=== PATIENT | female | born 1970 | race African-American/Black ===

== ENCOUNTER 2016-04-14 11:15 | Emergency (ER) | payer SELFPAY ==
[~2016-04-14] VITALS: Ht 157.5 cm; Wt 81.6 kg
[~2016-04-14 11:15] MED LIST: AZITHROMYCIN250 MG ORAL; BLEPH-105 ML OP; NAPROSYN375 M1 ORAL; ZITHROMAX250 MG ORAL
[2016-04-14 11:33] VITALS: BP 126/86
[2016-04-14] MEDS ORDERED: ALBUTEROL SULF8.5 GM INH (11:45)
[2016-04-14] MEDS ORDERED: PROMETH-CODEIN 65 ML PO (11:45)
[2016-04-14 11:50] VITALS: BP 126/86
--- NOTE | 2016-04-14 13:26 | Emergency Room Report ---
History of Present Illness General Chief Complaint: Upper Respiratory Illness Source: Patient Present Illness HPI Patient presents with complaints of cough and congestion Ongoing for the past several days Denies any fevers or chills Denies any chest pain Denies any neck pain or photophobia Denies any vomiting or diarrhea Denies any recent travel Allergies: Coded Allergies: No Known Allergies (Unverified , 06/03/14) Patient History Past Medical History: see triage record Pertinent Family History: none Last Menstrual Period: 2\1\17 Now: No : 3 Para: 3 Reviewed Nursing Documentation: PMH: Agreed, PSxH: Agreed Nursing Documentation-PMH Past Medical History: No Stated History Review of Systems All Other Systems: negative except mentioned in HPI Physical Exam Vital Signs Date Time Temp Pulse Resp B/P Pulse Ox O2 Delivery O2 Flow Rate FiO2 04/14/16 11:28 97.7 78 20 126/86 99 Room Air Sp02 EP Interpretation: reviewed, normal General Appearance: well appearing, no apparent distress Head: normocephalic, atraumatic Eyes: bilateral eye EOMI, bilateral eye PERRL ENT: hearing grossly normal, normal pharynx, TMs + canals normal, uvula midline Neck: full range of motion, supple, no meningismus, no bony tend Respiratory: lungs clear, normal breath sounds, no rhonchi, no respiratory distress, no retraction, no accessory muscle use Cardiovascular #1: normal peripheral pulses, regular rate, rhythm, no edema, no gallop, no JVD, no murmur Gastrointestinal: normal bowel sounds, non tender, soft, no mass, no organomegaly, non-distended, no guarding, no hernia, no pulsatile mass, no rebound Genitourinary: no CVA tenderness Musculoskeletal: normal inspection Neurologic: oriented x3, responsive, bark scaler III-XII nml as tested, motor strength/ tone normal, sensory intact Psychiatric: mood/affect normal Skin: normal color, no rash, warm/dry, palpation normal Lymphatic: normal inspection, no adenopathy Medical Decision Making Diagnostic Impression: Primary Impression: Upper respiratory infection Additional Impression: bronchitis ER Course Patient does have findings in line with a simple URI At this time patient will have initial conservative outpatient trial Differentials such as pneumonia were also considered Last Vital Signs Date Time Temp Pulse Resp B/P Pulse Ox O2 Delivery O2 Flow Rate FiO2 04/14/16 11:50 97.7 20 126/86 99 Room Air 04/14/16 11:33 78 Status: improved Disposition: HOME, SELF-CARE Condition: Stable Scripts Promethazine HCl/Codeine (Prometh-Codein 6.25-10 mg/5 ml) 5 Ml Syrup 5 ML PO QHS for 5 Days, ML Prov: MANJU LEACH D.O. 04/14/16 Albuterol Sulfate* (ALBUTEROL SULFATE MDI*) 8.5 Gm Hfa.aer.ad 2 PUFF INH Q6H, #1 EA 0 Refills Prov: MANJU LEACH D.O. 04/14/16 Referrals: NOT CHOSEN IPA/,REFERRING (PCP) Patient Instructions: Upper Respiratory Infection, Adult Additional Instructions: Patient is provided with the discharge instructions notified to follow up with primary doctor in the next 2-3 days otherwise return to the er with any worsening symptoms. Please note that this report is being documented using DRAGON technology. This can lead to erroneous entry secondary to incorrect interpretation by the dictating instrument. MANJU LEACH D.O. Apr 14, 2016 13:26
== END 2016-04-14 12:02 | disposition home or self-care (01) ==
LOC: EMR 11:44
DX: J20.9 Acute bronchitis, unspecified (principal)
CPT/HCPCS: 99284

== ENCOUNTER 2017-01-25 13:01 | Emergency (ER) | payer SELFPAY ==
[~2017-01-25] VITALS: Ht 157.5 cm; Wt 74.8 kg
[~2017-01-25 13:01] MED LIST changes: +ALBUTEROL SULF8.5 GM INH; +PROMETH-CODEIN 65 ML PO
[2017-01-25 13:25] VITALS: BP 123/79
[2017-01-25] MEDS ORDERED: LORATADINE10 M2 PO (14:03)
[2017-01-25] MEDS ORDERED: FLONASE ALLERG9.9 ML NS (14:03)
[2017-01-25] MEDS ORDERED: BROMFED DM COU118 ML PO (14:03)
[2017-01-25] MEDS ORDERED: ALBUTEROL SULF8.5 GM INH (14:03)
--- NOTE | 2017-01-25 14:03 | Emergency Room Report ---
History of Present Illness General Chief Complaint: Upper Respiratory Illness Source: Patient Present Illness HPI 46 y/o female c/o URI sxs x 5 days. Assoc sxs include nasal congestion, rhinorrhea, sore throat, post nasal drip, bodyaches, chills, and cough due to tickle in the throat. States they has not taken medication for symptoms. Denies any current n/v/f/c/d, abd pain, back pain, neck pain, photophobia, phonophobia , CP, SOB or headache. Allergies: Coded Allergies: No Known Allergies (Unverified , 06/03/14) Patient History Past Medical History: see triage record Past Surgical History: none Pertinent Family History: none Social History: Reports: smoking Now: No Reviewed Nursing Documentation: PMH: Agreed, PSxH: Agreed Nursing Documentation-PMH Past Medical History: No Stated History Review of Systems All Other Systems: negative except mentioned in HPI Physical Exam Vital Signs Date Time Temp Pulse Resp B/P (MAP) Pulse Ox O2 Delivery O2 Flow Rate FiO2 01/25/17 13:15 98.1 90 18 123/79 96 Room Air Sp02 EP Interpretation: reviewed, normal General Appearance: no apparent distress, alert, GCS 15, non-toxic Head: normocephalic, atraumatic Eyes: bilateral eye normal inspection, bilateral eye PERRL ENT: hearing grossly normal, normal pharynx, no angioedema, normal voice, TMs + canals normal, uvula midline, nasal congestion, other - post nasal drip Neck: full range of motion, supple/symm/no masses Respiratory: chest non-tender, lungs clear, speaking full sentences, wheezing - mild scattered Cardiovascular #1: regular rate, rhythm, no edema Musculoskeletal: back normal, gait/station normal, normal range of motion Neurologic: alert, oriented x3, responsive, motor strength/tone normal, sensory intact, speech normal Psychiatric: judgement/insight normal, memory normal, mood/affect normal, no suicidal/homicidal ideation Skin: normal color, no rash, warm/dry, well hydrated Medical Decision Making PA Attestation Dr. Singh my supervising physician with whom patient management has been discussed with. Diagnostic Impression: Primary Impression: Upper respiratory infection Qualified Codes: J06.9 - Acute upper respiratory infection, unspecified; B97.89 - Other viral agents as the cause of diseases classified elsewhere ER Course Pt. presents to the ED c/o of cough and congestion Ddx considered but are not limited to bronchitis, pneumonia, viral upper respiratory tract infection Vital signs: are WNL, pt. is afebrile H&PE are most consistent with viral upper respiratory tract infection ORDERS: none required at this time, the diagnosis is clinical ED INTERVENTIONS: None required at this time. DISCHARGE: At this time pt. is stable for d/c to home. Will provide printed patient care instructions, and any necessary prescriptions. Care plan and follow up instructions have been discussed with the patient prior to discharge. Last Vital Signs Date Time Temp Pulse Resp B/P (MAP) Pulse Ox O2 Delivery O2 Flow Rate FiO2 01/25/17 13:15 98.1 90 18 123/79 96 Room Air Status: unchanged Disposition: HOME, SELF-CARE Condition: Stable Scripts D-Methorphan Hb/P-Epd Hcl/Bpm (BROMFED DM COUGH SYRUP) 118 Ml Syrup 5 ML PO QHS for 7 Days, #120 ML Prov: SABRY,TAMEEM P.A. 01/25/17 Loratadine (LORATADINE) 10 Mg Tablet 10 MG PO DAILY for 14 Days, #14 TAB Prov: SABRY,TAMEEM P.A. 01/25/17 Fluticasone Propionate (Flonase Allergy Relief) 9.9 Ml [place].susp 2 SPRAYS NS DAILY for 7 Days, #10 ML Prov: SABRY,TAMEEM P.A. 01/25/17 Albuterol Sulfate* (ALBUTEROL SULFATE MDI*) 8.5 Gm Hfa.aer.ad 2 PUFF INH Q4H, #1 INH 0 Refills Prov: SABRY,TAMEEM P.A. 01/25/17 Patient Instructions: Upper Respiratory Infection, Adult Additional Instructions: Take medication as directed. Advised patient to use salt water gargle PRN. Advised patient to use chloraseptic as needed for throat pain in addition to APAP Q4H. Patient advised they can take Ibuprofen and Tylenol Q6H together for fever control as well. Educated patient on rhinitis and encouraged patient to use OTC nasal decongestants, nasal irrigation / saline sprays, and use of nasal suction such as NoseFrida. Educated patient on the benefits of the various OTC medications available (ie. H1 blockers, decongestants, nasal steroids, etc.). If sxs worsen or don't improve, please return sooner. Go to the ER if you develop SOB, CP, Rash, photophobia, neck pain, throat swelling occur, go to the ER immediately. EMY KARIMI Jan 25, 2017 14:03
[2017-01-25 14:22] VITALS: BP 123/79
== END 2017-01-25 14:22 | disposition home or self-care (01) ==
LOC: EMR 14:00
DX: J06.9 Acute upper respiratory infection, unspecified (principal); F17.200 Nicotine dependence, unspecified, uncomplicated
CPT/HCPCS: 99284